=== PATIENT | female | born 1965 | race Hispanic/Latino ===

== ENCOUNTER 2022-10-14 19:28 | Emergency (ER) | payer OTHER ==
[~2022-10-14] VITALS: Ht 167.6 cm; Wt 114.3 kg
[2022-10-14] MEDS ORDERED: FAMOTIDINE 20 MG/2 ML VIAL IV STA (19:35)
[2022-10-14] MEDS ORDERED: METHYLPREDNISOLONE SOD SUCC 125 MG/2ML VIAL IV ONE (19:45)
[2022-10-14] MEDS ORDERED: DIPHENHYDRAMINE HCL INJ 50 MG/ML VIAL IV ONE (19:45)
[2022-10-14] MEDS ORDERED: CEFDINIR300 MG PO (19:54)
[2022-10-14] MEDS ORDERED: MEDROL4 M2 PO (19:54)
[2022-10-14 20:15] VITALS: BP 115/60
== END 2022-10-14 20:16 | disposition home or self-care (01) ==
LOC: ER 19:48
DX: T37.8X5A Adverse effect of other specified systemic anti-infectives and antiparasitics, initial encounter (principal)
CPT/HCPCS: 99283; J1200; J2930